=== PATIENT | female | born 1985 | race Two or more races ===

== ENCOUNTER 2018-12-14 09:31 | Emergency (ER) | payer BC ==
[~2018-12-14] VITALS: Ht 167.6 cm; Wt 124.7 kg
[2018-12-14] MEDS ORDERED: SODIUM CHLORIDE 0.9% 1000ML 1,000 ML IV STA (09:42)
[2018-12-14] MEDS ORDERED: EPINEPHRINE 0.3 MG/0.3 ML PEN.INJCTR IM STA (09:42)
[2018-12-14] MEDS ORDERED: METHYLPREDNISOLONE SOD SUCC 125 MG/2ML VIAL IV ONE (09:45)
[2018-12-14] MEDS ORDERED: ALBUTEROL/IPRATROPIUM 3 ML NEB NEB ONE (09:45)
[2018-12-14] MEDS ORDERED: DEXAMETHASONE SOD PHOS 10 MG/1 ML VIAL IV ONE (09:45)
[2018-12-14] MEDS ORDERED: FAMOTIDINE 20 MG/2 ML VIAL IV SCH (09:45)
[2018-12-14] MEDS ORDERED: DIPHENHYDRAMINE HCL INJ 50 MG/ML VIAL IV ONE (09:45)
[2018-12-14] MEDS ORDERED: ALBUTEROL SULF 0.083% NEB SOLN 3 ML NEB ONE (09:52)
[2018-12-14] MEDS ORDERED: IPRATROPIUM BROMIDE 0.02% 2.5 ML NEB ONE (09:52)
[2018-12-14] MEDS ORDERED: ONDANSETRON HCL INJ 2MG/ML 2ML 2 MG/ML VIAL ONE (09:59)
[2018-12-14 10:01] LABS: BASOPHILS % 0.6 % (0.0-1.0); EOSINOPHILS # (AUTO) 0.2 (0.0-0.4); EOSINOPHILS % 3.2 % (0.0-6.0); HEMOGLOBIN 14.1 g/dL (12.0-16.0); LYMPHOCYTES % 45.2 % (18.0-39.1); MEAN CORPUSCULAR HGB CONC 32.8 g/dL (31-35); MEAN CORPUSCULAR VOLUME 91.5 fL (81-99); MONOCYTES # (AUTO) 0.4 (0.2-0.8); MONOCYTES % 5.5 % (4.4-11.3); NEUTROPHILS % 44.6 % (38.7-80.0); PLATELET COUNT 354 x10e3/uL (140-360)
[2018-12-14 10:18] LABS: ALANINE AMINOTRANSFERASE 19 IU/L (0-55); ALBUMIN/GLOBULIN RATIO 1.3 (0.8-2.0); ALKALINE PHOSPHATASE 79 IU/L (40-150); ANION GAP 11.3 mmol/L (8-16); BLOOD UREA NITROGEN 10 mg/dL (7-26); BUN/CREATININE RATIO 13 (6-25); CARBON DIOXIDE 27 mmol/L (22-29); CHLORIDE 99 mmol/L (98-107); CREATININE, SERUM 0.78 mg/dL (0.57-1.11); EST GLOMERULAR FILTRATION RATE > 60 ML/MIN (60-); GLUCOSE 88 mg/dL (74-118); POTASSIUM 3.3 mmol/L (3.5-5.1); SODIUM 134 mmol/L (136-145)
[2018-12-14 11:53] LABS: BILIRUBIN,URINE NEGATIVE (NEGATIVE); CLARITY,URINE CLEAR (CLEAR); COLOR,URINE YELLOW (YELLOW); KETONES,URINE NEGATIVE (NEGATIVE); LEUKOCYTE ESTERASE ,URINE NEGATIVE (NEGATIVE); NITRITE,URINE NEGATIVE (NEGATIVE); PROTEIN,URINE DIPSTICK NEGATIVE (NEGATIVE); URINE UROBILINOGEN 0.2 mg/dL (0.2 - 1)
[2018-12-14 12:14] LABS: BACTERIA,URINE MODERATE /HPF; EPITHELIAL CELLS,URINE FEW /LPF; RBC,URINE 0-5 /HPF (0-5)
== END 2018-12-14 12:43 | disposition home or self-care (01) ==
LOC: ER 09:31
DX: T78.05XA Anaphylactic reaction due to tree nuts and seeds, initial encounter (principal); R06.00 Dyspnea, unspecified; T78.3XXA Angioneurotic edema, initial encounter; J98.01 Acute bronchospasm
CPT/HCPCS: 36415; 80053; 81001; 84702; 85025; 94640; 99284; J1100; J2405

== ENCOUNTER 2018-12-22 00:20 | Emergency (ER) | payer BC ==
[~2018-12-22] VITALS: Ht 167.6 cm; Wt 124.7 kg
--- NOTE | 2018-12-22 01:35 | Diagnostic Imaging Report ---
EXAMINATION: CHEST 2 VIEWS INDICATION: Chest pain COMPARISON: None FINDINGS: PA and lateral views TUBES and LINES: None. LUNGS: Lungs are well inflated. Lungs are clear. There is no evidence of pneumonia or pulmonary edema. Left hemidiaphragm eventration. PLEURA: No pleural effusion or pneumothorax. HEART AND MEDIASTINUM: The cardiomediastinal silhouette is unremarkable. BONES AND SOFT TISSUES: No acute osseous lesion. Soft tissues are unremarkable. UPPER ABDOMEN: No free air under the diaphragm. IMPRESSION: No acute thoracic radiographic abnormality. Signed by: Marvin Robert DO on 12/22/2018 1:31 AM
[2018-12-22 01:47] LABS: BASOPHILS # (AUTO) 0.1 (0.0-0.1); BASOPHILS % 0.4 % (0.0-1.0); EOSINOPHILS # (AUTO) 0.3 (0.0-0.4); EOSINOPHILS % 1.9 % (0.0-6.0); HEMATOCRIT 44.5 % (34.2-44.1); HEMOGLOBIN 14.4 g/dL (12.0-16.0); LYMPHOCYTES # (AUTO) 3.1 (1.0-3.2); LYMPHOCYTES % 23.2 % (18.0-39.1); MEAN CORPUSCULAR HEMOGLOBIN 29.3 pg (28-32); MEAN CORPUSCULAR HGB CONC 32.4 g/dL (31-35); MEAN CORPUSCULAR VOLUME 90.4 fL (81-99); MONOCYTES % 7.8 % (4.4-11.3); NEUTROPHILS # (AUTO) 8.8 (2.1-6.9); NEUTROPHILS % 65.9 % (38.7-80.0); PLATELET COUNT 383 x10e3/uL (140-360); RED BLOOD COUNT 4.92 x10e6/uL (3.6-5.1); RED CELL DISTRIBUTION WIDTH 13.1 % (11.7-14.4)
[2018-12-22 01:51] LABS: AMPHETAMINES SCREEN,URINE POSITIVE (NEGATIVE); BENZODIAZEPINES SCREEN,URINE NEGATIVE (NEGATIVE); PHENCYCLIDINE SCREEN,URINE NEGATIVE (NEGATIVE)
[2018-12-22 02:06] LABS: ALANINE AMINOTRANSFERASE 18 IU/L (0-55); ALBUMIN/GLOBULIN RATIO 1.3 (0.8-2.0); ALKALINE PHOSPHATASE 67 IU/L (40-150); ANION GAP 17.4 mmol/L (8-16); BLOOD UREA NITROGEN 16 mg/dL (7-26); BUN/CREATININE RATIO 16 (6-25); CALCIUM 9.8 mg/dL (8.4-10.2); CARBON DIOXIDE 25 mmol/L (22-29); CHLORIDE 97 mmol/L (98-107); CREATINE KINASE 56 IU/L (29-168); EST GLOMERULAR FILTRATION RATE > 60 ML/MIN (60-); GLUCOSE 80 mg/dL (74-118); POTASSIUM 3.4 mmol/L (3.5-5.1); SODIUM 136 mmol/L (136-145)
[2018-12-22 03:09] VITALS: BP 148/98
== END 2018-12-22 03:14 | disposition home or self-care (01) ==
LOC: ER 00:20
DX: R07.89 Other chest pain (principal)
CPT/HCPCS: 36415; 71046; 80053; 80307; 80320; 81025; 82550; 82553; 83880; 84484; 85025; 85379; 99284

== ENCOUNTER 2019-06-15 05:59 | Emergency (ER) | payer BC ==
[~2019-06-15] VITALS: Ht 167.6 cm; Wt 124.7 kg
--- OUTSIDE RECORDS SUMMARY | 2019-06-15 06:01 | XMS REPORT ---
Author [facility] Address Unknown Phone Unavailable Care Team Providers Care Sewing Department Supervisor Name Role Phone NO, PCP PP Unavailable DANIEL CRUZ Unavailable Unavailable Payers Payer Name Policy Type Policy Number Effective Date Expiration Date [employer] [place] P[place] [id number] [employer] [place] P[place] [id number] Problems This patient has no known problems. Allergies, Adverse Reactions, Alerts Allergy Name Allergy Type Status Severity Reaction(s) Onset Date Inactive Date Treating Clinician Comments Sulfa (Sulfonamide Antibiotics) Allergy to Substance Active Unknown 2018-12-14 00:00:00 nut - unspecified Allergy to Substance Active Severe 2018-12-14 00:00:00 Medications This patient has no known medications. Procedures and Interventions Procedure Date / Time Performed Performing Clinician X-ray of chest, two views 2018-12-22 00:00:00 DANIEL CRUZ Encounters Start Date/Time End Date/Time Encounter Type Admission Type Attending Clinicians Care Facility Care Department Encounter ID 2018-12-22 00:20:00 2018-12-22 03:14:00 Departed Emergency Room 1 DANIEL CRUZ [facility] [id number] 2018-12-14 09:31:00 2018-12-14 12:43:00 Departed Emergency Room [facility] [id number] Results Test Description Test Time Test Comments Text Results Atomic Results Result Comments Creatine Kinase MB 2018-12-22 02:13:00 Creatine Kinase MB (test zkgc=00664-7) 1.40 0-5.0 Troponin P3796-40-97 02:13:00* Test Item Value Reference Range Comments Troponin I (test zkxl=NRZ9894) < 0.001 0-0.300 Sodium Qzshn3553-94-25 02:12:00* Test Item Value Reference Range Comments Sodium Level (test wbmc=5518-1) 136 136-145 Potassium Nxbrg0818-27-07 02:12:00* Test Item Value Reference Range Comments Potassium Level (test slgp=2367-4) 3.4 3.5-5.1 Chloride Bccoj3357-33-12 02:12:00* Test Item Value Reference Range Comments Chloride Level (test rnrz=9756-2) 97 98-107 Carbon Dioxide Djsei2079-86-25 02:12:00* Test Item Value Reference Range Comments Carbon Dioxide Level (test vgtw=1080-7) 25 22-29 Anion Srk2559-45-28 02:12:00* Test Item Value Reference Range Comments Anion Gap (test yopc=71823-1) 17.4 8-16 Blood Urea Hrpfweuc0597-35-74 02:12:00* Test Item Value Reference Range Comments Blood Urea Nitrogen (test tlza=0341-9) 16 7-26 Iuumpxyyyp7767-24-87 02:12:00* Test Item Value Reference Range Comments Creatinine (test qbnk=4444-7) 1.00 0.57-1.11 BUN/Creatinine Xogaq3798-99-62 02:12:00* Test Item Value Reference Range Comments BUN/Creatinine Ratio (test zqim=0034-6) 16 6-25 Estimat Glomerular Filtration Lbrz3519-45-61 02:12:00* Test Item Value Reference Range Comments Estimat Glomerular Filtration Rate (test qpdt=135616702) > 60 >60 Ranges were taken from the National Kidney Disease Education Program and the [facility] literature.Reference ranges:60 or greater: Wgepol78-31 ( for 3 consecutive months): Chronic kidney disease 15 or less: Kidney failure Glucose Aiuzo2443-52-85 02:12:00* Test Item Value Reference Range Comments Glucose Level (test urxh=SIM3286) 80 74-118 Calcium Snkih4514-69-50 02:12:00* Test Item Value Reference Range Comments Calcium Level (test xkzl=58497-5) 9.8 8.4-10.2 Total Elckvmtsm6482-73-25 02:12:00* Test Item Value Reference Range Comments Total Bilirubin (test ztdd=7328-1) 0.5 0.2-1.2 Aspartate Amino Transf (AST/SGOT)2018-12-22 02:12:00* Test Item Value Reference Range Comments Aspartate Amino Transf (AST/SGOT) (test code=Aspartate Amino Transf (AST/SGOT)) 23 5-34 Alanine Aminotransferase (ALT/SGPT)2018-12-22 02:12:00* Test Item Value Reference Range Comments Alanine Aminotransferase (ALT/SGPT) (test fozw=7698-3) 18 0-55 Total Ileowfm2580-51-41 02:12:00* Test Item Value Reference Range Comments Total Protein (test yegs=1865-1) 7.1 6.5-8.1 Itavnvv9499-22-59 02:12:00* Test Item Value Reference Range Comments Albumin (test fmuo=0902-2) 4.0 3.5-5.0 Uqxglwnf4620-75-75 02:12:00* Test Item Value Reference Range Comments Globulin (test kruk=69900-3) 3.1 2.3-3.5 Albumin/Globulin Slkmm9997-46-15 02:12:00* Test Item Value Reference Range Comments Albumin/Globulin Ratio (test tjxe=8012-4) 1.3 0.8-2.0 Alkaline Uwyazpgpqbh6709-17-32 02:12:00* Test Item Value Reference Range Comments Alkaline Phosphatase (test nswg=2567-4) 67 40-150 Creatine Vfjjrh7402-32-84 02:12:00* Test Item Value Reference Range Comments Creatine Kinase (test xmlw=5406-5) 56 29-168 D-Dimer Quantitative (PE/DVT)2018-12-22 02:02:00* Test Item Value Reference Range Comments D-Dimer Quantitative (PE/DVT) (test gxbj=52088-2) 0.27 0.00-0.45 As with all in vitro diagnostic tests, the test results should be interpreted by the physician in conjunction with clinical findings and other test results.Test results are reported in NEW D-dimer units(ug/mLFEU).B-Type Natriuretic Peptide 2018-12-22 02:02:00* Test Item Value Reference Range Comments B-Type Natriuretic Peptide (test iljm=88892-7) < 5.0 0-100 Ethyl Alcohol Hdeqm5030-35-01 02:02:00* Test Item Value Reference Range Comments Ethyl Alcohol Level (test wbno=3847-8) < 10.0 0.0-10.0 White Blood Axqms8188-13-74 01:53:00* Test Item Value Reference Range Comments White Blood Count (test zidq=3059-9) 13.39 4.8-10.8 Red Blood Agoir2108-66-46 01:53:00* Test Item Value Reference Range Comments Red Blood Count (test qttc=686-2) 4.92 3.6-5.1 Bwhpthfqco8258-93-84 01:53:00* Test Item Value Reference Range Comments Hemoglobin (test trvw=36163-4) 14.4 12.0-16.0 Rsgxvddixz9679-13-37 01:53:00* Test Item Value Reference Range Comments Hematocrit (test zyhg=5525-5) 44.5 34.2-44.1 Mean Corpuscular Whfnkz3213-16-94 01:53:00* Test Item Value Reference Range Comments Mean Corpuscular Volume (test gaou=099-1) 90.4 81-99 Mean Corpuscular Rkljxncuok3253-26-09 01:53:00* Test Item Value Reference Range Comments Mean Corpuscular Hemoglobin (test hjgp=219-8) 29.3 28-32 Mean Corpuscular Hemoglobin Jggaixc0269-63-26 01:53:00* Test Item Value Reference Range Comments Mean Corpuscular Hemoglobin Concent (test cuhg=718-7) 32.4 31-35 Red Cell Distribution Wjojv1882-80-29 01:53:00* Test Item Value Reference Range Comments Red Cell Distribution Width (test njph=90021-0) 13.1 11.7-14.4 Platelet Cjcyy1532-74-96 01:53:00* Test Item Value Reference Range Comments Platelet Count (test ubwo=729-8) 383 140-360 Neutrophils (%) (Auto)2018-12-22 01:53:00* Test Item Value Reference Range Comments Neutrophils (%) (Auto) (test poca=65810-9) 65.9 38.7-80.0 Lymphocytes (%) (Auto)2018-12-22 01:53:00* Test Item Value Reference Range Comments Lymphocytes (%) (Auto) (test bprr=306-4) 23.2 18.0-39.1 Monocytes (%) (Auto)2018-12-22 01:53:00* Test Item Value Reference Range Comments Monocytes (%) (Auto) (test lbvz=3414-2) 7.8 4.4-11.3 Eosinophils (%) (Auto)2018-12-22 01:53:00* Test Item Value Reference Range Comments Eosinophils (%) (Auto) (test yhoq=641-2) 1.9 0.0-6.0 Basophils (%) (Auto)2018-12-22 01:53:00* Test Item Value Reference Range Comments Basophils (%) (Auto) (test ahgz=757-3) 0.4 0.0-1.0 IM GRANULOCYTES %2018-12-22 01:53:00* Test Item Value Reference Range Comments IM GRANULOCYTES % (test code=IM GRANULOCYTES %) 0.8 0.0-1.0 Neutrophils # (Auto)2018-12-22 01:53:00* Test Item Value Reference Range Comments Neutrophils # (Auto) (test mvse=585-9) 8.8 2.1-6.9 Lymphocytes # (Auto)2018-12-22 01:53:00* Test Item Value Reference Range Comments Lymphocytes # (Auto) (test rmre=22641-6) 3.1 1.0-3.2 Monocytes # (Auto)2018-12-22 01:53:00* Test Item Value Reference Range Comments Monocytes # (Auto) (test yide=926-6) 1.0 0.2-0.8 Eosinophils # (Auto)2018-12-22 01:53:00* Test Item Value Reference Range Comments Eosinophils # (Auto) (test vrgr=390-9) 0.3 0.0-0.4 Basophils # (Auto)2018-12-22 01:53:00* Test Item Value Reference Range Comments Basophils # (Auto) (test xucg=085-7) 0.1 0.0-0.1 Absolute Immature Granulocyte (eckx8253-52-67 01:53:00* Test Item Value Reference Range Comments Absolute Immature Granulocyte (auto (test code=Absolute Immature Granulocyte (auto) 0.11 0-0.1 Urine Wmxg1334-65-52 01:52:00* Test Item Value Reference Range Comments Urine Test (test lasd=6273-4) NEGATIVE NEGATIVE Urine Opiates Mqfjqr5424-86-76 01:51:00* Test Item Value Reference Range Comments Urine Opiates Screen (test tqiq=85534-8) NEGATIVE NEGATIVE ALL TESTS PERFORMED MANUALLY ON [employer] TOX/SEE TESTUrine Barbiturates Screen 2018-12-22 01:51:00* Test Item Value Reference Range Comments Urine Barbiturates Screen (test bshw=129570672) NEGATIVE NEGATIVE Urine Phencyclidine Rxcjpi7825-85-75 01:51:00* Test Item Value Reference Range Comments Urine Phencyclidine Screen (test iudc=27134-1) NEGATIVE NEGATIVE Urine Amphetamines Tyetfe7254-67-98 01:51:00* Test Item Value Reference Range Comments Urine Amphetamines Screen (test usif=73467-0) POSITIVE NEGATIVE This test provides only a screen. Positive results should be repeated by a confi rmatory test.Urine Methamphetamines Mwshtf5226-76-07 01:51:00* Test Item Value Reference Range Comments Urine Methamphetamines Screen (test code=Urine Methamphetamines Screen) NEGATIVE NEGATIVE Urine Benzodiazepines Jjabas2106-29-80 01:51:00* Test Item Value Reference Range Comments Urine Benzodiazepines Screen (test crql=82833-7) NEGATIVE NEGATIVE Urine Cocaine Jzmdfh9485-45-62 01:51:00* Test Item Value Reference Range Comments Urine Cocaine Screen (test llxd=2187-1) NEGATIVE NEGATIVE Urine Cannabinoids Vxnfsr9920-68-71 01:51:00* Test Item Value Reference Range Comments Urine Cannabinoids Screen (test vafs=20880-7) NEGATIVE NEGATIVE THESE RESULTS ARE FOR MEDICAL TREATMENT ONLYTHIS REPORT CONTAINS UNCONFIR MED SCREENING RESULTS*POSITIVE RESULTS WILL BE CONFIRMED BY REFERENCE LAB UPON R EQUEST CUT-OFFDRUG CLASS CONCENTRATION ng/mLAmphetamines 1000Methamphetamines 1000Cocaine 300Opiate 300Phencyc lidine 25Cannabinoid 50Barbiturates 300Benzodiazepine 300Methadone 300Urine Methadone Bwumcy3773-18-93 01:51:00* Test Item Value Reference Range Comments Urine Methadone Screen (test lwio=55991-1) NEGATIVE NEGATIVE THESE RESULTS ARE FOR MEDICAL TREATMENT ONLYTHIS REPORT CONTAINS UNCONFIR MED SCREENING RESULTS*POSITIVE RESULTS WILL BE CONFIRMED BY REFERENCE LAB UPON R EQUEST CUT-OFFDRUG CLASS CONCENTRATION ng/mLAmphetamines 1000Methamphetamines 1000Cocaine Metabolite 300Opiate 300Phencyc lidine 25Cannabinoid 50Barbiturates 300Benzodiazepine 300Methadone 300CHEST 2 MOTUC0818-57-57 01:30:00 [place] [address] Patient Name: FRANKI STEPHEN MR #: [id number] : 1985 Age/Sex: 33/F Req #: [id number] Adm Physician: Ordered by: DANIEL CRUZ DO Report #: [id number] Location: ER Room/Bed: Procedure: [id number] DX/ALVARO ST 2 VIEWS Exam Date: 12/22/18 Exam Time: 0045 REPORT STATUS: Signed EXAMINATION: C HEST 2 VIEWS INDICATION: Chest pain COMPARISON: None FINDINGS: PA and lateral views TUBES and LINES: None. LUNGS: Lico gs are well inflated. Lungs are clear. There is no evidence of pneumonia or pulmonary edema. Left hemidiaphragm eventration. PLEURA: No pleural effusi on or pneumothorax. HEART AND MEDIASTINUM: The cardiomediastinal silhouett e is unremarkable. BONES AND SOFT TISSUES: No acute osseous lesion. S oft tissues are unremarkable. UPPER ABDOMEN: No free air under the diaphr agm. IMPRESSION: No acute thoracic radiographic abnormality. Signed by: Marvin Robert DO on 12/22/2018 1:31 AM Dictated By: ELLEN ROBERT DO 0 Transcribed By: RANDEE on 12/22/18130 COPY TO: DANIEL CRUZ DO Urine KVK6232-98-14 12:15:00* Test Item Value Reference Range Comments Urine WBC (test ajqb=2014-2) 6-10 0-5 Urine LTJ1906-81-03 12:15:00* Test Item Value Reference Range Comments Urine RBC (test rclv=69993-8) 0-5 0-5 Urine Nhtqcjmq1672-10-05 12:15:00* Test Item Value Reference Range Comments Urine Bacteria (test antc=14108-6) MODERATE NONE Urine Epithelial Ratte1310-02-54 12:15:00* Test Item Value Reference Range Comments Urine Epithelial Cells (test twig=95412-4) FEW NONE Urine Cgnyt1379-53-74 12:09:00* Test Item Value Reference Range Comments Urine Color (test qnyv=6114-0) YELLOW YELLOW Urine Tdrdjex2715-50-06 12:09:00* Test Item Value Reference Range Comments Urine Clarity (test pmmc=81313-2) CLEAR CLEAR Urine Specific Jdvgwuy9647-35-80 12:09:00* Test Item Value Reference Range Comments Urine Specific [place] (test jxvd=7450-0) 1.025 1.010-1.025 Urine aP6266-91-08 12:09:00* Test Item Value Reference Range Comments Urine pH (test eixm=60314-1) 6 5-7 Urine Leukocyte Avqbletd9571-16-50 12:09:00* Test Item Value Reference Range Comments Urine Leukocyte Esterase (test eyso=22901-9) NEGATIVE NEGATIVE Urine Awidzvf3595-44-44 12:09:00* Test Item Value Reference Range Comments Urine Nitrite (test ijxp=83158-0) NEGATIVE NEGATIVE Urine Rhtilkj3731-42-25 12:09:00* Test Item Value Reference Range Comments Urine Protein (test dkvo=34441-9) NEGATIVE NEGATIVE Urine Glucose (UA)2018-12-14 12:09:00* Test Item Value Reference Range Comments Urine Glucose (UA) (test vdjy=97834-8) NEGATIVE NEGATIVE Urine Wqfomiw6057-23-39 12:09:00* Test Item Value Reference Range Comments Urine Ketones (test yocp=26729-0) NEGATIVE NEGATIVE Urine Bzotsfwoyvou8805-66-27 12:09:00* Test Item Value Reference Range Comments Urine Urobilinogen (test vqci=35438-4) 0.2 0.2-1 Urine Igrbvljfo2479-69-03 12:09:00* Test Item Value Reference Range Comments Urine Bilirubin (test vxrc=7300-8) NEGATIVE NEGATIVE Urine Dixmq9367-82-50 12:09:00* Test Item Value Reference Range Comments Urine Blood (test lfxw=62956-9) NEGATIVE NEGATIVE Human Chorionic Gonadotropin, Rded3742-57-09 10:24:00* Test Item Value Reference Range Comments Human Chorionic Gonadotropin, Qual (test dbvj=4804-9) NEGATIVE NEGATIVE
[2019-06-15 06:49] LABS: BASOPHILS # (AUTO) 0.1 (0.0-0.1); BASOPHILS % 0.5 % (0.0-1.0); EOSINOPHILS # (AUTO) 1.3 (0.0-0.4); EOSINOPHILS % 13.1 % (0.0-6.0); HEMATOCRIT 37.4 % (34.2-44.1); HEMOGLOBIN 12.4 g/dL (12.0-16.0); LYMPHOCYTES # (AUTO) 1.7 (1.0-3.2); LYMPHOCYTES % 16.4 % (18.0-39.1); MEAN CORPUSCULAR HEMOGLOBIN 30.2 pg (28-32); MEAN CORPUSCULAR HGB CONC 33.2 g/dL (31-35); MONOCYTES # (AUTO) 0.5 (0.2-0.8); MONOCYTES % 5.3 % (4.4-11.3); NEUTROPHILS # (AUTO) 6.5 (2.1-6.9); NEUTROPHILS % 63.9 % (38.7-80.0); PLATELET COUNT 339 x10e3/uL (140-360); RED BLOOD COUNT 4.11 x10e6/uL (3.6-5.1)
[2019-06-15 07:03] LABS: AMPHETAMINES SCREEN,URINE POSITIVE (NEGATIVE); BENZODIAZEPINES SCREEN,URINE NEGATIVE (NEGATIVE); PHENCYCLIDINE SCREEN,URINE NEGATIVE (NEGATIVE)
[2019-06-15 07:11] LABS: ALANINE AMINOTRANSFERASE 23 IU/L (0-55); ALBUMIN/GLOBULIN RATIO 1.3 (0.8-2.0); ALKALINE PHOSPHATASE 132 IU/L (40-150); ANION GAP 12.6 mmol/L (8-16); BLOOD UREA NITROGEN 9 mg/dL (7-26); BUN/CREATININE RATIO 11 (6-25); CALCIUM 9.3 mg/dL (8.4-10.2); CARBON DIOXIDE 27 mmol/L (22-29); CHLORIDE 100 mmol/L (98-107); CREATININE, SERUM 0.82 mg/dL (0.57-1.11); EST GLOMERULAR FILTRATION RATE > 60 ML/MIN (60-); GLUCOSE 91 mg/dL (74-118); POTASSIUM 3.6 mmol/L (3.5-5.1); SODIUM 136 mmol/L (136-145)
== END 2019-06-15 07:05 | disposition home or self-care (01) ==
LOC: ER 05:59
DX: R21 Rash and other nonspecific skin eruption (principal); F10.10 Alcohol abuse, uncomplicated; F98.8 Other specified behavioral and emotional disorders with onset usually occurring in childhood and adolescence
CPT/HCPCS: 36415; 80053; 80307; 85025; 99283

== ENCOUNTER 2019-06-15 10:09 | Emergency (ER) | payer BC ==
[~2019-06-15] VITALS: Ht 167.6 cm; Wt 124.7 kg
[2019-06-15] MEDS ORDERED: SODIUM CHLORIDE 0.9% 1000ML 1,000 ML IV SCH (10:15)
[2019-06-15] MEDS ORDERED: DIAZEPAM 5 MG TAB PO ONE (10:30)
[2019-06-15 11:18] LABS: BASOPHILS # (AUTO) 0.1 (0.0-0.1); BASOPHILS % 0.5 % (0.0-1.0); EOSINOPHILS # (AUTO) 1.4 (0.0-0.4); HEMATOCRIT 36.8 % (34.2-44.1); HEMOGLOBIN 12.1 g/dL (12.0-16.0); LYMPHOCYTES # (AUTO) 1.7 (1.0-3.2); LYMPHOCYTES % 14.9 % (18.0-39.1); MEAN CORPUSCULAR HEMOGLOBIN 29.9 pg (28-32); MEAN CORPUSCULAR HGB CONC 32.9 g/dL (31-35); MEAN CORPUSCULAR VOLUME 90.9 fL (81-99); MONOCYTES # (AUTO) 0.5 (0.2-0.8); MONOCYTES % 4.7 % (4.4-11.3); NEUTROPHILS # (AUTO) 7.7 (2.1-6.9); NEUTROPHILS % 67.3 % (38.7-80.0); PLATELET COUNT 339 x10e3/uL (140-360); RED BLOOD COUNT 4.05 x10e6/uL (3.6-5.1)
[2019-06-15 11:50] LABS: ALANINE AMINOTRANSFERASE 21 IU/L (0-55); ALBUMIN 3.9 g/dL (3.5-5.0); ALBUMIN/GLOBULIN RATIO 1.3 (0.8-2.0); ALKALINE PHOSPHATASE 134 IU/L (40-150); ANION GAP 12.7 mmol/L (8-16); BLOOD UREA NITROGEN 10 mg/dL (7-26); BUN/CREATININE RATIO 13 (6-25); CALCIUM 9.4 mg/dL (8.4-10.2); CARBON DIOXIDE 26 mmol/L (22-29); CHLORIDE 100 mmol/L (98-107); CREATINE KINASE 136 IU/L (29-168); CREATININE, SERUM 0.76 mg/dL (0.57-1.11); EST GLOMERULAR FILTRATION RATE > 60 ML/MIN (60-); GLUCOSE 86 mg/dL (74-118); POTASSIUM 3.7 mmol/L (3.5-5.1); SODIUM 135 mmol/L (136-145)
[2019-06-15 12:25] VITALS: BP 132/90
== END 2019-06-15 12:53 | disposition home or self-care (01) ==
LOC: ER 10:09
DX: R06.09 Other forms of dyspnea (principal); F41.1 Generalized anxiety disorder; F10.10 Alcohol abuse, uncomplicated; F17.210 Nicotine dependence, cigarettes, uncomplicated
CPT/HCPCS: 36415; 80053; 82550; 82553; 84484; 85025; 85379; 99283; J7030